=== PATIENT | male | born 1935 | race African-American/Black ===

== ENCOUNTER 2017-11-18 09:54 | Emergency (ER) | payer OTHER ==
[~2017-11-18] VITALS: Ht 177.8 cm; Wt 61.5 kg
[2017-11-18] MEDS ORDERED: CLOP75TA16 PO (10:05)
[2017-11-18] MEDS ORDERED: ASPI-1159 PO (10:05)
[2017-11-18] MEDS ORDERED: POTA-9 PO (10:05)
[2017-11-18] MEDS ORDERED: ATOR40TA70 PO (10:05)
[2017-11-18] MEDS ORDERED: METO25TA6 PO (10:05)
[2017-11-18] MEDS ORDERED: LISI-604 PO (10:05)
[2017-11-18] MEDS ORDERED: SPIR25TA6 PO (10:05)
[2017-11-18 10:18] LABS: BASOPHILS % 0.8 % (0.0-2.0); EOSINOPHILS % 1.9 % (0.0-5.0); HEMATOCRIT. 37.9 % (42.0-52.0); HEMOGLOBIN. 12.5 g/dL (14.0-18.0); LYMPHOCYTES % 34.7 % (20.0-50.0); MEAN CORPUSCULAR HEMOGLOBIN 28.5 pg (28.0-32.0); MEAN CORPUSCULAR VOLUME 86.5 fL (80.0-94.0); MEAN PLATELET VOLUME 8.7 fl (7.4-10.4); MONOCYTES % 9.4 % (2.0-8.0); NEUTROPHILS % 53.2 % (40.0-76.0); PLATELET 148 x1000/uL (130-400); RED BLOOD CELL COUNT 4.39 mill/uL (4.7-6.1); RED CELL DISTRIBUTION WIDTH 15.9 % (11.6-14.6)
[2017-11-18 10:25] LABS: CHLORIDE 101 mEq/L (98-107)
[2017-11-18 10:27] LABS: INR 1.2; PARTIAL THROMBOPLASTIN TIME 27.4 sec (23.4-31.0); PROTHROMBIN TIME 12.6 sec (9.4-11.6)
[2017-11-18 10:29] LABS: ETHANOL BLOOD < 10 mg/dL
[2017-11-18 10:32] LABS: AMMONIA 28 uMol/L (<32)
[2017-11-18 10:34] LABS: LDL CHOLESTEROL 62 mg/dL (5-100)
[2017-11-18] MEDS ORDERED: IOHEXOL-350 100 ML BOTTLE ONE (10:36)
[2017-11-18] MEDS ORDERED: POTASSIUM CHLORIDE 20MEQ TABLET SR PO ONE (12:15)
[2017-11-18] MEDS ORDERED: FUROSEMIDE 20MG/2ML VIAL IVP ONE (12:15)
[2017-11-18 14:22] VITALS: BP 146/88
== END 2017-11-18 14:35 | disposition short-term general hospital (02) ==
LOC: ER 09:54
DX: I63.9 Cerebral infarction, unspecified (principal); R29.810 Facial weakness; R41.82 Altered mental status, unspecified; G81.91 Hemiplegia, unspecified affecting right dominant side; I11.0 Hypertensive heart disease with heart failure; I50.41 Acute combined systolic (congestive) and diastolic (congestive) heart failure; E87.6 Hypokalemia; Z89.512 Acquired absence of left leg below knee
CPT/HCPCS: 36415; 70450; 70496; 71045; 80053; 82140; 82962; 83721; 83880; 84484; 85025; 85610; 85730; 93005; 96374; 99291; G0482; J1940; Q9967